=== PATIENT | male | born 1995 | race Caucasian/White ===

== ENCOUNTER 2017-03-02 15:17 | Inpatient (IN) | payer OTHER ==
[~2017-03-02 15:17] MED LIST: ISOVUE-370 76%-LOCM 1 ML ONE
[2017-03-02 15:31] LABS: #Basophils 0.1 thou/uL (0.0-0.2); #Eosinphils 0.6 thou/uL (0.0-0.7); #Lymphocytes 5.4 thou/uL (1.20-3.40); #Neutrophils 5.9 thou/uL (1.40-6.50); %Eosinophils 4.4 % (0.0-10.0); %Lymphocytes 41.7 % (28.0-48.0); %Monocytes 7.5 % (0.0-4.0); Hematocrit 48.9 % (42.0-52.0); Red Blood Cell (RBC) Count 5.35 mill/uL (4.00-5.20); White Blood Cell (WBC) Count 13.1 thou/uL (4.8-10.8)
[2017-03-02] MEDS ORDERED: Morphine 10 MG/ML VIAL ONE (15:38)
[2017-03-02] MEDS ORDERED: Adacel (T-DAP) 0.5 ML VIAL ONE (15:38)
[2017-03-02 15:49] LABS: PTT 27.4 SEC (22.9-36.1); Prothrombin Time 13.1 SEC (12.0-14.7)
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
[2017-03-02 16:25] LABS: ALT (SGPT) 21 U/L (8-55); AST (SGOT) 19 U/L (10-45); Alkaline Phosphatase 100 U/L (Less than 750); Anion Gap 11 mmol/L (10-20); BUN (Urea Nitrogen) 12 mg/dL (8.4-21.0); Bilirubin, Total 0.5 mg/dL (0.2-1.2); Calc. Creatinine Clearance 0 mL/min (70-130); Calcium 9.4 mg/dL (7.8-10.44); Carbon Dioxide 27 mmol/L (22-29); Chloride 105 mmol/L (98-107); Estimated GFR-MDRD 83; Globulin 2.9 g/dL (2.4-3.5)
[2017-03-02] MEDS ORDERED: Morphine 2 MG/ML SYRINGE ONE (16:29)
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
--- NOTE | 2017-03-02 16:59 | RAD ---
RIGHT ANKLE 2 VIEWS: Date: 03/02/17 PROVIDED CLINICAL HISTORY: Leg pain status post injury. FINDINGS: There is a fracture of the talar neck with dislocation of the posterior approximately half of the ta [place] along with the talar contribution to the posterior subtalar joint. No additional fracture is virgin[place]. Alignment appears otherwise anatomic. IMPRESSION: Displaced fracture of the talus. POS: [facility]
[2017-03-02] MEDS ORDERED: CEFAZOLIN/Water 2 GM/20 ML SYRINGE SLOW IVP SCH (17:30)
[2017-03-02] MEDS ORDERED: CEFAZOLIN/Water 2 GM/20 ML SYRINGE ONE (19:08)
[2017-03-02] MEDS ORDERED: Scopolamine 1.5 mg/72 hour Patch ONE (19:13)
[2017-03-02] MEDS ORDERED: Promethazine HCl 25 MG/ML VIAL ONE (19:15)
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
[2017-03-02] MEDS ORDERED: Fentanyl 250 MCG/5 ML VIAL ONE (19:22)
[2017-03-02] MEDS ORDERED: Dexamethasone 20 MG/5 ML VIAL ONE (19:28)
[2017-03-02] MEDS ORDERED: PHENYLEPHRINE-NS 100 MCG/ML 10 ML SYRINGE ONE (19:28)
[2017-03-02] MEDS ORDERED: Succinylcholine Chloride 20 MG/ML 10 ml SYRINGE FS ONE (19:28)
[2017-03-02] MEDS ORDERED: Lidocaine 2% PF 10 ML AMP (For Epidural Use) ONE (19:28)
[2017-03-02] MEDS ORDERED: Ketorolac Tromethamine 30 MG/ML VIAL ONE (19:28)
[2017-03-02] MEDS ORDERED: Ondansetron HCl/PF 4 MG/2 ML Vial ONE (19:28)
[2017-03-02] MEDS ORDERED: Propofol 200 MG/20 ML VIAL ONE (19:28)
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
[2017-03-02] MEDS ORDERED: Bupivacaine PF 0.5% 30 ML VIAL ONE (21:09)
[2017-03-02] MEDS ORDERED: Ondansetron HCl/PF 4 MG/2 ML Vial IVP PRN ×2 (21:44→22:38)
[2017-03-02] MEDS ORDERED: Promethazine HCl 25 MG/ML VIAL SLOW IVP PRN (21:44)
[2017-03-02] MEDS ORDERED: HYDROmorphone 2 MG/ML VIAL SLOW IVP PRN (21:44)
[2017-03-02] MEDS ORDERED: Promethazine HCl 25 MG/ML VIAL IM PRN ×2 (21:44→22:38)
[2017-03-02] MEDS ORDERED: hydrALAZINE 20 MG/ML VIAL SLOW IVP PRN (22:38)
[2017-03-02] MEDS ORDERED: Dextrose 5% in Water 1,000 ML IV PRN (22:38)
[2017-03-02] MEDS ORDERED: Dextrose 50% Abboject 50 ML SYRINGE SLOW IVP PRN (22:38)
[2017-03-02] MEDS ORDERED: Ondansetron ODT 4 MG TAB PO PRN (22:38)
[2017-03-02] MEDS: Acetaminophen 500 MG TAB PO SCH ×2 (23:23→23:40)
[2017-03-02] MEDS: Ketorolac Tromethamine 30 MG/ML VIAL IVP SCH ×2 (23:23→23:40)
[2017-03-02] MEDS: traMADol HCl 50 MG TAB PO SCH ×2 (23:24→23:41)
[2017-03-02] MEDS: Sodium Chloride 0.9% 1,000 ML IV SCH (23:26)
[2017-03-03 01:05] VITALS: BMI 33.5
[2017-03-03] MEDS: CEFAZOLIN/Water 2 GM/20 ML SYRINGE SLOW IVP SCH ×2 (02:41→09:38)
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
[2017-03-03] MEDS: traMADol HCl 50 MG TAB PO SCH ×4 (05:18→23:15)
[2017-03-03] MEDS: Acetaminophen 500 MG TAB PO SCH ×4 (05:18→23:15)
[2017-03-03] MEDS: Ketorolac Tromethamine 30 MG/ML VIAL IVP SCH ×2 (05:19→12:21)
[2017-03-03 05:25] LABS: #Lymphocytes 1.4 thou/uL (1.20-3.40); #Monocytes 0.8 thou/uL (0.11-0.59); %Basophils 0.2 % (0.0-1.0); %Eosinophils 0.1 % (0.0-10.0); %Lymphocytes 8.3 % (28.0-48.0); %Monocytes 4.7 % (0.0-4.0); Hematocrit 46.3 % (42.0-52.0); Mean Platelet Volume 8.2 fL (7.4-10.4); Red Blood Cell (RBC) Count 5.01 mill/uL (4.00-5.20); White Blood Cell (WBC) Count 17.3 thou/uL (4.8-10.8)
[2017-03-03 05:45] LABS: Anion Gap 11 mmol/L (10-20); BUN (Urea Nitrogen) 10 mg/dL (8.4-21.0); Calc. Creatinine Clearance 192 mL/min (70-130); Calcium 9.2 mg/dL (7.8-10.44); Carbon Dioxide 29 mmol/L (22-29); Chloride 100 mmol/L (98-107); Estimated GFR-MDRD 87
[2017-03-03] MEDS: Sodium Chloride 0.9% 1,000 ML IV SCH (07:41)
[2017-03-03] MEDS ORDERED: FLU VACC QS2017-18 36 mo. & older 0.5 ML SYRINGE IM ONE (09:00)
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
[2017-03-03] MEDS: Famotidine 20 MG TAB PO SCH ×2 (09:37→20:44)
[2017-03-03] MEDS ORDERED: Ibuprofen 800 MG TAB PO PRN (13:04)
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
[2017-03-04] MEDS: Acetaminophen 500 MG TAB PO SCH (05:37)
[2017-03-04] MEDS: traMADol HCl 50 MG TAB PO SCH (05:38)
[2017-03-04 08:14] VITALS: BP 116/73; TEMP 98.2
[2017-03-04] MEDS ORDERED: HYDROcodone/Acetaminophen 10/325 mg Tablet PO PRN ×2 (08:28)
[2017-03-04] MEDS: Famotidine 20 MG TAB PO SCH (09:43)
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
== END 2017-03-04 11:23 | disposition home or self-care (01) | DRG 504 ==
LOC: ERS 15:17 → SDC/OP 19:01 → SURG A 22:32
PROVIDERS: ADMIT Orthopaedic Surgery; ATTEND Orthopaedic Surgery
PROC: 0QSL04Z Reposition Right Tarsal with Internal Fixation Device, Open Approach (ICD-10-PCS; principal; 2017-03-02)
PROC: 0QBL0ZZ Excision of Right Tarsal, Open Approach (ICD-10-PCS; 2017-03-02)
DX: S92.111A Displaced fracture of neck of right talus, initial encounter for closed fracture (principal); S06.0X9A Concussion with loss of consciousness of unspecified duration, initial encounter; G89.11 Acute pain due to trauma; V44.5XXA Car driver injured in collision with heavy transport vehicle or bus in traffic accident, initial encounter; Y92.410 Unspecified street and highway as the place of occurrence of the external cause
CPT/HCPCS: 28430; 36415; 70450; 71010; 71260; 72125; 74177; 76001; 80048; 80053; 80307; 83690; 85025; 85610; 85730; 90471; 90682; 90715; 94760; 96361; 96374; C1713; C1769; G0008; G0390; G8978-GP-CJ; G8979-GP-CJ; G8980-GP-CJ; G8987-GO-CK; G8988-GO-CI; J1100; J1170; J1885; J2001; J2270; J2405; J2550; J2704; J3010; Q2036; S0020

== ENCOUNTER 2017-06-08 16:25 | Inpatient (IN) | payer OTHER ==
[2017-06-08 18:00] LABS: #Basophils 0.1 thou/uL (0.0-0.2); #Eosinphils 0.9 thou/uL (0.0-0.7); #Lymphocytes 3.7 thou/uL (1.20-3.40); #Monocytes 0.8 thou/uL (0.11-0.59); #Neutrophils 8.5 thou/uL (1.40-6.50); %Basophils 0.8 % (0.0-1.0); %Eosinophils 6.7 % (0.0-10.0); %Lymphocytes 26.3 % (28.0-48.0); %Monocytes 5.9 % (0.0-4.0); %Neutrophils 60.3 % (31.0-61.0); Hemoglobin 15.4 g/dL (14.0-18.0); Mean Corpuscular HGB CONC 33.3 g/dL (32.0-36.0); Mean Corpuscular Hemoglobin 30.5 pg (25.0-35.0); Mean Corpuscular Volume 91.6 fl (77.0-87.0); Mean Platelet Volume 8.1 fL (7.4-10.4); Platelet Count 296 thou/uL (130-400); RBC Distribution Width 12.6 % (11.5-14.5); Red Blood Cell (RBC) Count 5.06 mill/uL (4.00-5.20); White Blood Cell (WBC) Count 14.1 thou/uL (4.8-10.8)
[2017-06-08 18:24] LABS: ALT (SGPT) 23 U/L (8-55); AST (SGOT) 17 U/L (10-45); Albumin 4.3 g/dL (3.5-5.0); Alkaline Phosphatase 116 U/L (Less than 750); Anion Gap 16 mmol/L (10-20); BUN (Urea Nitrogen) 13 mg/dL (8.4-21.0); Bilirubin, Total 0.4 mg/dL (0.2-1.2); Calc. Creatinine Clearance 0 mL/min (70-130); Calcium 9.3 mg/dL (7.8-10.44); Carbon Dioxide 21 mmol/L (22-29); Chloride 106 mmol/L (98-107); Estimated GFR-MDRD Greater than 90; Glucose 79 mg/dL (70-105); Protein, Total 7.3 g/dL (6.0-8.3); Sodium 139 mmol/L (136-145)
[2017-06-08] MEDS ORDERED: Clindamycin/D5W 900 mg/50 ml Premix Bag ONE (18:56)
--- NOTE | 2017-06-08 19:16 | RAD ---
RIGHT ANKLE RADIOGRAPHS THREE VIEWS 06/08/17 PROVIDED CLINICAL HISTORY: Right ankle infection. FINDINGS: Comparison 03/02/17. Cannulated partially threaded screws are again noted associated with the medial malleolus and talus, without evidence for hardware loosening and migration. A small nonspecific focus of lucency involves the lateral aspect of the talar dome. There is soft tissue swelling about the ankle. there is no virginia dence for an acute fracture. Alignment appears anatomic. Joint spaces appear preserved. IMPRESSION: No definite evidence for an acute osseous abnormality. If there is persistent clinical concern, conse rvative management and followup imaging are advised. POS: [facility]
[2017-06-08] MEDS ORDERED: Ondansetron HCl/PF 4 MG/2 ML Vial IVP PRN (20:10)
[2017-06-08] MEDS ORDERED: Bisacodyl 5 MG TAB PO PRN (20:10)
[2017-06-08] MEDS ORDERED: Ondansetron ODT 4 MG TAB PO PRN (20:10)
[2017-06-08] MEDS ORDERED: Acetaminophen 650 MG Suppository PR PRN (20:10)
[2017-06-08 21:09] VITALS: BMI 36.0
[2017-06-08] MEDS ORDERED: VANCOMYCIN IVPB PRN (21:53)
[2017-06-08] MEDS: Acetaminophen 325 MG TAB PO PRN (22:10)
[2017-06-08] MEDS: hydrOXYzine 25 MG TAB PO PRN (22:53)
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
[2017-06-09 05:27] LABS: #Eosinphils 0.3 thou/uL (0.0-0.7); #Lymphocytes 1.5 thou/uL (1.20-3.40); #Monocytes 0.1 thou/uL (0.11-0.59); #Neutrophils 12.1 thou/uL (1.40-6.50); %Basophils 0.3 % (0.0-1.0); %Eosinophils 1.8 % (0.0-10.0); %Lymphocytes 10.7 % (28.0-48.0); %Monocytes 0.8 % (0.0-4.0); %Neutrophils 86.4 % (31.0-61.0); Hemoglobin 15.4 g/dL (14.0-18.0); Mean Corpuscular HGB CONC 33.2 g/dL (32.0-36.0); Mean Corpuscular Hemoglobin 30.3 pg (25.0-35.0); Mean Corpuscular Volume 91.5 fl (77.0-87.0); Mean Platelet Volume 8.3 fL (7.4-10.4); Platelet Count 288 thou/uL (130-400); RBC Distribution Width 12.6 % (11.5-14.5); Red Blood Cell (RBC) Count 5.09 mill/uL (4.00-5.20)
[2017-06-09 05:42] LABS: Anion Gap 10 mmol/L (10-20); BUN (Urea Nitrogen) 11 mg/dL (8.4-21.0); Calc. Creatinine Clearance 221 mL/min (70-130); Calcium 9.3 mg/dL (7.8-10.44); Carbon Dioxide 28 mmol/L (22-29); Chloride 104 mmol/L (98-107); Estimated GFR-MDRD Greater than 90; Glucose 136 mg/dL (70-105); Potassium 4.4 mmol/L (3.5-5.1); Sodium 138 mmol/L (136-145)
[2017-06-09] MEDS: hydrOXYzine 25 MG TAB PO PRN ×2 (08:53→15:56)
[2017-06-09] MEDS ORDERED: AMPHETAMINE PO SCH (09:00)
[2017-06-09] MEDS ORDERED: Non-Formulary Item 1 EACH (Lisdexamfetamine Dimesylate [Vyvanse] 50 MG) PO SCH (09:00)
[2017-06-09] MEDS ORDERED: DEXTROAMPHETAMINE PO SCH (09:00)
--- NOTE | 2017-06-09 18:05 | PDOC.PN ---
- Subjective Encounter Start Date: 06/09/17 Encounter Start Time: 07:40 Pt seen for followup re: rash. Reports R foot itching. No fevers. - Objective Resuscitation Status: Resuscitation Status FULL:Full Resuscitation MAR Reviewed: Yes Vital Signs & Weight: Vital Signs (12 hours) Temp Pulse Resp BP Pulse Ox 06/09/17 08:15 98.6 F 76 16 98 06/09/17 08:05 98.6 F 76 16 113/57 L 98 Weight Admit Weight 296 lb Weight 296 lb I&O: 06/08/17 06/09/17 06/10/17 06:59 06:59 06:59 Intake Total 2029 Balance 2029 Result Diagrams: 06/09/17 05:14 06/09/17 05:14 Phys Exam - Physical Examination Obese HEENT: moist MMs Neck: supple Respiratory: clear to auscultation bilateral Cardiovascular: RRR Gastrointestinal: soft Neurological: moves all 4 limbs Psychiatric: normal affect Deviation from normal: R ankle rash Dx/Plan (1) Rash Code(s): R21 - RASH AND OTHER NONSPECIFIC SKIN ERUPTION Status: Acute (2) Asthma Code(s): J45.909 - UNSPECIFIED ASTHMA, UNCOMPLICATED Status: Chronic - Plan plan discussed w/ family, continue antibiotics * . Unsure whether pt has infectious rash or allergic rash. Continue antibiotics for now, consult ID. Review of Systems - Review of Systems Constitutional: negative: fever, chills, sweats, weakness, malaise Respiratory: negative: Cough, Dry, Shortness of Breath, Hemoptysis, SOB with Excertion, Pleuritic Pain, Sputum, Wheezing Skin: Rash - Medications/Allergies Allergies/Adverse Reactions: Allergies Allergy/AdvReac Type Severity Reaction Status Date / Time Penicillins Allergy Severe Hives Verified 06/08/17 21:11 amoxicillin Allergy Verified 03/02/17 22:49 Medications: Current Medications Acetaminophen (Tylenol) 650 mg PO Q4H PRN PRN Reason: Headache/Fever or Pain Last Admin: 06/08/17 22:10 Dose: 650 mg Acetaminophen (Tylenol) 650 mg [place] Q4H PRN PRN Reason: Headache/Fever or Pain Bisacodyl (Dulcolax) 10 mg PO DAILYPRN PRN PRN Reason: Constipation Hydroxyzine HCl (Atarax) 25 mg PO Q6H PRN PRN Reason: Itching Last Admin: 06/09/17 15:56 Dose: 25 mg Vancomycin HCl 2 gm/ Sodium (Chloride) 500 mls @ 250 mls/hr IVPB 0800,1600, 2359 [facility] Last Admin: 06/09/17 17:14 Dose: 500 mls Methylprednisolone Sodium Succinate (Solu-Medrol) 40 mg IVP Q6HR [facility] Last Admin: 06/09/17 17:14 Dose: 40 mg Miscellaneous Medication (Pharmacy To Dose) 1 each IVPB PRN PRN PRN Reason: Pharmacy to dose Non-Formulary Medication (Dextroamphetamine/Amphetamine [Adderall]) 10 mg PO DAILY [facility] Non-Formulary Medication (Lisdexamfetamine Dimesylate [Vyvanse]) 50 mg PO QAM [facility] Ondansetron HCl (Zofran Odt) 4 mg PO Q6H PRN PRN Reason: Nausea/Vomiting Ondansetron HCl (Zofran) 4 mg IVP Q6H PRN PRN Reason: Nausea/Vomiting Sodium Chloride (Flush - Normal Saline) 10 ml IVF Q12HR [facility] Last Admin: 06/09/17 12:26 Dose: Not Given Sodium Chloride (Flush - Normal Saline) 10 ml IVF PRN PRN PRN Reason: Saline Flush Last Admin: 06/09/17 06:17 Dose: 10 ml
[2017-06-09] MEDS: Triamcinolone 0.1% Cream 15 GM TUBE TOP SCH (21:45)
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
[2017-06-09 23:25] LABS: Vancomycin, Trough 21.9 ug/mL
[2017-06-10] MEDS: hydrOXYzine 25 MG TAB PO PRN ×3 (05:00→20:28)
[2017-06-10] MEDS: predniSONE 20 MG TAB PO SCH (09:33)
[2017-06-10] MEDS: Triamcinolone 0.1% Cream 15 GM TUBE TOP SCH ×3 (10:06→20:28)
[2017-06-10] MEDS: Acetaminophen 325 MG TAB PO PRN ×3 (10:06→23:48)
[2017-06-10] MEDS ORDERED: Levothyroxine Sodium 100 MCG TAB PO SCH (10:15)
--- NOTE | 2017-06-10 12:37 | PDOC.PN ---
- Subjective Encounter Start Date: 06/10/17 Encounter Start Time: 08:00 Pt seen for followup re: rash. Reports itching, burning sensation in R leg. No other complaints. - Objective Resuscitation Status: Resuscitation Status FULL:Full Resuscitation MAR Reviewed: Yes Vital Signs & Weight: Vital Signs (12 hours) Temp Pulse Resp BP Pulse Ox 06/10/17 12:17 98.6 F 86 16 134/64 06/10/17 07:47 98.5 F 73 16 98 06/10/17 04:40 98.5 F 73 16 110/56 L 97 Weight Admit Weight 296 lb Weight 296 lb I&O: 06/09/17 06/10/17 06/11/17 06:59 06:59 06:59 Intake Total 2029 Balance 2029 Result Diagrams: 06/09/17 05:14 06/09/17 05:14 Phys Exam - Physical Examination Obese HEENT: moist MMs Neck: supple Respiratory: clear to auscultation bilateral Cardiovascular: RRR Gastrointestinal: soft Neurological: moves all 4 limbs Psychiatric: normal affect Skin: no rash Dx/Plan (1) Rash Code(s): R21 - RASH AND OTHER NONSPECIFIC SKIN ERUPTION Status: Acute (2) Hypothyroidism Code(s): E03.9 - HYPOTHYROIDISM, UNSPECIFIED Status: Acute (3) Asthma Code(s): J45.909 - UNSPECIFIED ASTHMA, UNCOMPLICATED Status: Chronic - Plan out of bed/ambulate * . Ambulate pt, continue steroids. Off of antibiotics. Pt was recently prescribed synthroid but has not started it yet. Will start synthroid. Likely home 24-48 hrs. Review of Systems - Review of Systems Constitutional: negative: fever, chills, sweats, weakness, malaise Respiratory: negative: Cough, Dry, Shortness of Breath, Hemoptysis, SOB with Excertion, Pleuritic Pain, Sputum, Wheezing Cardiovascular: negative: chest pain, palpitations, orthopnea, paroxysmal nocturnal dyspnea, edema, light headedness Musculoskeletal: Leg Pain - Medications/Allergies Allergies/Adverse Reactions: Allergies Allergy/AdvReac Type Severity Reaction Status Date / Time Penicillins Allergy Severe Hives Verified 06/08/17 21:11 amoxicillin Allergy Verified 03/02/17 22:49 Medications: Current Medications Acetaminophen (Tylenol) 650 mg PO Q4H PRN PRN Reason: Headache/Fever or Pain Last Admin: 06/10/17 10:06 Dose: 650 mg Acetaminophen (Tylenol) 650 mg [place] Q4H PRN PRN Reason: Headache/Fever or Pain Bisacodyl (Dulcolax) 10 mg PO DAILYPRN PRN PRN Reason: Constipation Hydroxyzine HCl (Atarax) 25 mg PO Q6H PRN PRN Reason: Itching Last Admin: 06/10/17 11:46 Dose: 25 mg Levothyroxine Sodium (Synthroid) 100 mcg PO 0600 REPLACED BY [facility] Ondansetron HCl (Zofran Odt) 4 mg PO Q6H PRN PRN Reason: Nausea/Vomiting Ondansetron HCl (Zofran) 4 mg IVP Q6H PRN PRN Reason: Nausea/Vomiting Prednisone (Prednisone) 40 mg PO QAM[facility] Last Admin: 06/10/17 09:33 Dose: 40 mg Sodium Chloride (Flush - Normal Saline) 10 ml IVF Q12HR [facility] Last Admin: 06/10/17 11:47 Dose: Not Given Sodium Chloride (Flush - Normal Saline) 10 ml IVF PRN PRN PRN Reason: Saline Flush Last Admin: 06/09/17 06:17 Dose: 10 ml Triamcinolone Acetonide (Kenalog 0.1% Cream) 1 gm TOP BID [facility] Last Admin: 06/10/17 10:06 Dose: Not Given
[2017-06-11] MEDS ORDERED: Levothyroxine Sodium 100 MCG TAB PO SCH (06:00)
[2017-06-11] MEDS: predniSONE 20 MG TAB PO SCH (07:53)
[2017-06-11 07:56] VITALS: BP 124/59; TEMP 98.3
--- NOTE | 2017-06-11 16:30 | DIS ---
DATE OF ADMISSION: 06/08/2017 DATE OF DISCHARGE: 06/11/2017 PRIMARY CARE PHYSICIAN: Dr. Mendel Michael, at [facility]. DISCHARGE DIAGNOSES: Contact dermatitis. CONDITION OF PATIENT AT THE TIME OF DISCHARGE: Stable. I assessed Mr. Tom on the day of discharge. He denies any chest pain or shortness of breath. Vital signs are stable. S1 and S2 are heard, regular. Lungs are clear to auscultation bilaterally. Right foot rash is improving. HOSPITAL COURSE: Mr. Tom is a pleasant 21-year-old gentleman who was admitted to [facility] on 06/08/2017 because of rash over his right knee and foot. X-rays at the time of admission did not show any acute osseous abnormality. He was initially started on antibiotics. I nfectious Diseases service was consulted. Dr. Khalil saw Mr. Tom and his opinion was that the p atient likely had contact dermatitis, probably from material associated with the brace on the right a nkle. He was started on steroids, both oral and topical. Antibiotics were discontinued. He continu ed to improve and is being discharged home in a stable condition. Skin cultures grew Staphylococcus aureus and Aerococcus viridans, and these were felt to be skin corey a growing in the cultures. DISCHARGE MEDICATIONS: ProAir HFA p.r.n., cyproheptadine 4 mg 3 times a day as needed, dextroampheta mine/amphetamine 10 mg daily, Atarax 25 mg every 8 hours as needed, Synthroid 100 mcg daily, dextroam phetamine, lisdexamfetamine 50 mg daily, prednisone taper, Kenalog 0.1% cream 2 times a day. Side effects of steroids were discussed. Many thanks for allowing me to participate in your patient's care. Please feel free to contact me wi th any questions or concerns. DISCHARGE DESTINATION: Home. TOTAL AMOUNT OF TIME SPENT COORDINATING THIS DISCHARGE: 26 minutes. DISCHARGE INSTRUCTIONS: The patient is advised to follow up with his primary care provider in 3-5 da ys.
== END 2017-06-11 11:44 | disposition home or self-care (01) | DRG 607 ==
LOC: ERS 16:25 → 3SE 20:04
PROVIDERS: ADMIT Emergency Medicine; ATTEND Emergency Medicine
DX: L25.8 Unspecified contact dermatitis due to other agents (principal); E03.9 Hypothyroidism, unspecified; F98.8 Other specified behavioral and emotional disorders with onset usually occurring in childhood and adolescence; J45.909 Unspecified asthma, uncomplicated
CPT/HCPCS: 36415; 80048; 80053; 80202; 83605; 85025; 85652; 86140; 87040; 87070; 87077; 87186; 87205; 90471; 90732; 96365; 96368; A4216; G0009; J2920; J3370; J3490; J7050; J7506

== ENCOUNTER 2017-06-14 23:26 | Emergency (ER) | payer OTHER ==
[2017-06-15] MEDS ORDERED: diphenhydrAMINE 50 MG/ML VIAL ONE (02:10)
[2017-06-15] MEDS ORDERED: methylPREDNISolone Sod Succ/PF 125 MG/2 ML VIAL ONE (02:10)
[2017-06-15] MEDS ORDERED: Famotidine/PF 20 mg/2ml Vial ONE (02:10)
[2017-06-15] MEDS ORDERED: Water For Injection,Sterile 20 ML ONE (02:10)
== END 2017-06-15 03:46 | disposition home or self-care (01) ==
LOC: ERS 23:26
DX: L50.0 Allergic urticaria (principal); J45.909 Unspecified asthma, uncomplicated; F98.8 Other specified behavioral and emotional disorders with onset usually occurring in childhood and adolescence; Z79.899 Other long term (current) drug therapy
CPT/HCPCS: 96374; 96375; J1200; J2930; S0028

== ENCOUNTER 2017-11-24 12:13 | Outpatient (CLI) | payer OTHER | END 2017-11-24 12:14 | disposition home or self-care (01) | LOC: BICCT 12:13 | PROVIDERS: ATTEND Physician Assistant Surgical | DX: S92.111A Displaced fracture of neck of right talus, initial encounter for closed fracture (principal); Z98.890 Other specified postprocedural states ==

== ENCOUNTER 2018-01-03 21:47 | Emergency (ER) | payer OTHER | END 2018-01-04 00:42 | disposition home or self-care (01) | LOC: ERS 21:47 | DX: R21 Rash and other nonspecific skin eruption (principal); E03.9 Hypothyroidism, unspecified; J45.909 Unspecified asthma, uncomplicated; Z79.899 Other long term (current) drug therapy | CPT/HCPCS: 99282 ==